=== PATIENT | male | born 1985 | race African-American/Black ===

== ENCOUNTER 2017-03-23 00:57 | Emergency (ER) | payer SELFPAY ==
[~2017-03-23 00:57] MED LIST: IBUPROFEN600 M1 PO; NO HOME MEDICATION XX
[2017-03-23 01:28] LABS: BASO % 0.2 % (0-2); EOS % 1.5 % (0-7); EOSINOPHIL ABSOLUTE COUNT 0.2 tho/cmm (0.0-0.7); HCT-HEMATOCRIT 46.4 % (36.0-53.5); HGB-HEMOGLOBIN 16.2 gm/dl (13.5-17.0); IMMATURE GRANULOCYTES ABSOLUTE 0.02 tho/cmm (0-0.03); IMMATURE GRANULOCYTES PERCENT 0.2 % (0-0.3); LYMPH % 34.9 % (20-45); LYMPH ABSOLUTE COUNT 3.4 tho/cmm (0.8-4.5); MCH (MEAN CORPUSCULAR HGB) 31.6 pg (28.0-32.0); MCHC MEAN CORPUSCULAR HGB CONC 34.9 % (32.0-36.0); MCV (MEAN CELL VOLUME) 90.6 fl (82.0-96.0); MEAN PLATELET VOLUME 9.5 cmc (9.4-12.4); MONO % 8.8 % (0-12); MONOCYTE ABSOLUTE COUNT 0.9 tho/cmm (0.0-1.2); NEUTROPHIL ABSOLUTE COUNT 5.3 tho/cmm (1.6-8.0); NEUTROPHIL-AUTOMATED 5.3 tho/cmm (1.6-8.0); NEUTROPHILS % 54.4 % (40-80); PLATELET COUNT 204 tho/cmm (150-450); RED BLOOD COUNT 5.12 mil/cmm (4.40-5.70); RED CELL DISTRIBUTION WIDTH 12.5 % (12.4-16.4); WHITE BLOOD COUNT 9.7 tho/cmm (4.0-10.0)
[2017-03-23 01:48] LABS: ANION GAP 12 mmol/L (0-20); BLOOD UREA NITROGEN 15 mg/dl (6-24); CALCIUM 8.8 mg/dl (8.5-10.5); CARBON DIOXIDE-VENOUS 29 mmol/L (22-32); CHLORIDE 107 mmol/l (96-110); CREATININE 0.98 mg/dl (0.60-1.30); GLUCOSE 88 mg/dL (70-110); MAGNESIUM 2.1 mg/dl (1.8-2.6); POTASSIUM 3.9 mmol/L (3.7-5.1); SODIUM 144 mmol/L (135-145); eGFR VALUE FOR BLACK >90 mL/Min
[2017-03-23 01:52] LABS: TSH-THYROID STIMULATING HORM. 2.93 uIU/ml (0.40-3.80)
== END 2017-03-23 03:00 ==
LOC: EDMED 00:57
PROVIDERS: Emergency Medicine
DX: R07.89 Other chest pain (principal); R00.2 Palpitations; F17.290 Nicotine dependence, other tobacco product, uncomplicated